=== PATIENT | female | born 1960 | race Caucasian/White ===

== ENCOUNTER → 2020-06-26 | Day surgery (SDC) | payer OTHER ==
[~2020-06-26] VITALS: Ht 152.4 cm; Wt 95.2 kg
[~2020-06-26] MED LIST: AJOVY225 MG/1.5 SC; ALLOPURINOL300 MG PO; ASPIRIN CHEWABL81 MG PO; BYSTOLIC10 MG PO; CELEXA20 MG PO; CERTAGEN1 EACH PO; COLESTID1 GM PO; EFFEXOR XR150 MG PO; EMGALITY120 MG/1 M IJ; ESTRACE1 MG PO; FEOSOL325 MG PO; INDOCIN25 MG PO; LAMICTAL (BLUE)25 MG PO; LASIX20 MG PO; LAXATIVE SUPPOS10 MG PO; LIPITOR20 MG PO; LISINOPRIL-HCT1 EAC1 PO; METOPROLOL SUCC50 MG PO; MILK THISTLE1 GM PO; NORCO 5-325 TA1 EACH PO; NORVASC5 MG PO; ONDANSETRON ODT4 MG SL; ONDANSETRON ODT8 MG PO; PERCOCET 5-3251 EACH PO; PERCOCET 7.5/321 TAB PO; PRINIVIL20 MG PO; PROTONIX 40MG T40 MG PO; SENOKOT-S TABL1 EACH PO; TOPAMAX100 MG PO; VENTOLIN HFA IN18 GM INH; XARELTO10 MG PO; ZOFRAN8 MG PO
[2020-06-26 08:45] LABS: HCT 38.4 % (37.0-47.0); HGB 12.9 g/dl (12.5-16.0); MCH 30.4 pg (25.0-31.0); MCHC 33.6 g/dL (32.0-36.0); MCV 90.6 fL (78.0-100.0); MPV 9.8 fL (6.0-9.5); RBC 4.24 M/uL (4.20-5.40); RDW 14.9 % (11.5-14.0); WBC 5.6 K/uL (4.0-10.5)
[2020-06-26 11:45] LABS: ALBUMIN 3.7 g/dL (3.4-5.0); BILIRUBIN - TOTAL 0.4 mg/dL (0.2-1.0); BUN/CREAT RATIO (CALC) 17.2 RATIO; CREATININE 0.99 mg/dL (0.51-0.95); GLOBULIN (CALCULATION) 3.6 g/dL; POTASSIUM 3.3 mmol/L (3.5-5.1); TOTAL PROTEIN 7.3 g/dL (6.4-8.2)
== END | disposition home or self-care (01) ==
LOC: FAS 08:17
PROVIDERS: Surgery
DX: K29.50 Unspecified chronic gastritis without bleeding (principal); K25.9 Gastric ulcer, unspecified as acute or chronic, without hemorrhage or perforation; K21.9 Gastro-esophageal reflux disease without esophagitis; F41.9 Anxiety disorder, unspecified; M19.90 Unspecified osteoarthritis, unspecified site; E78.70 Disorder of bile acid and cholesterol metabolism, unspecified; E11.9 Type 2 diabetes mellitus without complications; E78.5 Hyperlipidemia, unspecified; I10 Essential (primary) hypertension; F32.9 Major depressive disorder, single episode, unspecified; G47.30 Sleep apnea, unspecified; G43.909 Migraine, unspecified, not intractable, without status migrainosus; E66.01 Morbid (severe) obesity due to excess calories; Z68.41 Body mass index [BMI] 40.0-44.9, adult; Z88.8 Allergy status to other drugs, medicaments and biological substances; Z88.5 Allergy status to narcotic agent; Z79.899 Other long term (current) drug therapy; Z90.710 Acquired absence of both cervix and uterus; Z90.49 Acquired absence of other specified parts of digestive tract; Z96.651 Presence of right artificial knee joint; Z20.822 Contact with and (suspected) exposure to COVID-19; Z82.49 Family history of ischemic heart disease and other diseases of the circulatory system; Z87.891 Personal history of nicotine dependence; Z99.89 Dependence on other enabling machines and devices
CPT/HCPCS: 36415; 80053; J7120

== ENCOUNTER → 2021-02-14 | Day surgery (SDC) | payer OTHER ==
[~2021-02-14] VITALS: Ht 152.4 cm; Wt 93.9 kg
[~2021-02-14] MED LIST changes: +BUSPAR5 MG PO; +METFORMIN HCL500 M3 PO
[2021-02-14 09:26] LABS: HCT 38.4 % (37.0-47.0); HGB 12.8 g/dl (12.5-16.0); MCH 30.3 pg (25.0-31.0); MCHC 33.3 g/dL (32.0-36.0); MPV 9.9 fL (6.0-9.5); RBC 4.22 M/uL (4.20-5.40); RDW 14.6 % (11.5-14.0); WBC 4.9 K/uL (4.0-10.5)
[2021-02-14 09:46] LABS: ALBUMIN 3.8 g/dL (3.4-5.0); BILIRUBIN - TOTAL 0.5 mg/dL (0.2-1.0); BUN/CREAT RATIO (CALC) 19.3 RATIO; CREATININE 1.09 mg/dL (0.51-0.95); GLOBULIN (CALCULATION) 3.9 g/dL; POTASSIUM 3.4 mmol/L (3.5-5.1); TOTAL PROTEIN 7.7 g/dL (6.4-8.2)
== END | disposition home or self-care (01) ==
LOC: FAS 01-17 08:00
PROVIDERS: Surgery
DX: K22.2 Esophageal obstruction (principal); R07.9 Chest pain, unspecified; I10 Essential (primary) hypertension; E11.9 Type 2 diabetes mellitus without complications; G47.30 Sleep apnea, unspecified; K21.9 Gastro-esophageal reflux disease without esophagitis; F41.9 Anxiety disorder, unspecified; M19.90 Unspecified osteoarthritis, unspecified site; E78.5 Hyperlipidemia, unspecified; Z87.891 Personal history of nicotine dependence; Z79.899 Other long term (current) drug therapy; Z98.84 Bariatric surgery status; Z90.49 Acquired absence of other specified parts of digestive tract; Z90.710 Acquired absence of both cervix and uterus; Z88.1 Allergy status to other antibiotic agents; Z88.5 Allergy status to narcotic agent; Z88.8 Allergy status to other drugs, medicaments and biological substances
CPT/HCPCS: 36415; 80053; J1170; J2250; J2405; J2704; J2710; J3010; J7120

== ENCOUNTER 2021-03-12 19:34 | Emergency (ER) | payer OTHER ==
[2021-03-12 21:32] LABS: BASOPHIL 0.4 % (0-2); EOSINOPHIL 1.5 % (0-5); HCT 38.6 % (37.0-47.0); HGB 12.7 g/dl (12.5-16.0); LYMPHOCYTE 14.7 % (15-48); MCH 29.7 pg (25.0-31.0); MCHC 32.9 g/dL (32.0-36.0); MCV 90.4 fL (78.0-100.0); MONOCYTE 7.7 % (0-12); MPV 10.4 fL (6.0-9.5); NEUTROPHIL 75.1 % (41-80); NRBC 0; PLT 247 K/uL (150-400); RBC 4.27 M/uL (4.20-5.40); RDW 14.8 % (11.5-14.0); WBC 14.9 K/uL (4.0-10.5)
[2021-03-12 21:43] LABS: BUN/CREAT RATIO (CALC) 14.8 RATIO; CREATININE 1.08 mg/dL (0.51-0.95)
[2021-03-12 21:52] LABS: LACTIC ACID 1.8 mmol/L (0.4-1.9)
[2021-03-13] MEDS ORDERED: PERCOCET 5-3251 EACH PO (01:28)
[2021-03-13] MEDS ORDERED: VIBRAMYCIN100 MG PO (01:28)
[2021-03-13] MEDS ORDERED: ONDANSETRON ODT4 MG PO (01:28)
[2021-03-13] MEDS ORDERED: DIFLUCAN150 MG PO (01:49)
== END 2021-03-13 02:15 | disposition home or self-care (01) ==
LOC: FER 19:34
PROVIDERS: Internal Medicine
DX: L02.211 Cutaneous abscess of abdominal wall (principal); I12.9 Hypertensive chronic kidney disease with stage 1 through stage 4 chronic kidney disease, or unspecified chronic kidney disease; E11.22 Type 2 diabetes mellitus with diabetic chronic kidney disease; N18.31 Chronic kidney disease, stage 3a; Z88.1 Allergy status to other antibiotic agents; Z88.5 Allergy status to narcotic agent; Z88.8 Allergy status to other drugs, medicaments and biological substances
CPT/HCPCS: 36415; 80048; 83605; 84145; 85025; 87040; J1170; J2405; J2543; J3370; J7030; J7050; Q9967